=== PATIENT | male | born 2000 | race Two or more races ===

== ENCOUNTER 2023-07-06 16:41 | Emergency (ER) | payer OTHER ==
[~2023-07-06] VITALS: Ht 175.3 cm; Wt 72.6 kg
[~2023-07-06 16:41] MED LIST: INTESTINEX680 M1 PO; PEPCID AC20 MG PO
[2023-07-06 19:57] LABS: ALBUMIN 4.2 gm/dL (3.4-5.0); BILIRUBIN TOTAL 1.1 mg/dL (0.3-1.2); CALCIUM 8.9 mg/dL (8.5-10.1); CREATININE SERUM 0.87 mg/dL (0.70-1.30); GFR 107.81; GLOBULINA 3.5 G/DL (2.4-3.5); POTASSIUM 3.39 mEq/L (3.5-5.1); TOTAL PROTEIN 7.7 gm/dL (6.4-8.2)
[2023-07-06 21:07] LABS: MEAN CELL VOLUME 88.4 fL (80.0-100.00); MEAN CORPUSCULAR HEMOGLOBIN 31.7 pg (27.00-32.0); MEAN CORPUSCULAR HGB CONC 35.9 g/dl (32.0-36.0); PLATELET COUNT 174 K/uL (150-450); RED BLOOD COUNT 5.33 M/uL (4.00-6.00); RED CELL DISTRIBUTION WIDTH 12.6 % (11.5-14.5)
[2023-07-06 21:08] LABS: HEMATOCRIT 47.1 % (39.0-48.0)
[2023-07-06 21:11] LABS: HEMOGLOBIN 16.9 g/dL (13-16.00)
== END 2023-07-06 22:34 | disposition home or self-care (01) ==
LOC: ER → EDBD 16:42 → ER 16:42
PROVIDERS: General Practice
DX: U07.1 COVID-19 (principal); Z88.8 Allergy status to other drugs, medicaments and biological substances

== ENCOUNTER 2024-12-27 00:33 | Emergency (ER) | payer OTHER ==
[~2024-12-27] VITALS: Ht 182.9 cm; Wt 77.1 kg
[2024-12-27] MEDS ORDERED: DIPHENHYDRAMINE HCL 12.5 MG/5 ML BLIST.PACK PO STA (05:49)
[2024-12-27] MEDS ORDERED: GUAIFENESIN 200 MG/10 ML BLIST.PACK PO STA (05:49)
[2024-12-27] MEDS ORDERED: KETOROLAC TROMETHAMINE 10 MG TABLET PO STA (05:50)
[2024-12-27] MEDS ORDERED: DIPHENHYDRAMINE HCL 12.5 MG/5 ML BLIST.PACK PO ONE (05:52)
[2024-12-27] MEDS ORDERED: GUAIFENESIN 200 MG/10 ML BLIST.PACK PO ONE (05:52)
[2024-12-27] MEDS ORDERED: KETOROLAC TROMETHAMINE 10 MG TABLET PO ONE (05:52)
[2024-12-27 06:10] LABS: BASO % 0.4 % (0.1-1.2); EOS # 0.21 (0.04-0.54); EOS % 3.9 % (0.7-7.0); HEMOGLOBIN 14.3 g/dL (13.7-17.5); LYMPH # 2.26 (1.18-3.74); MEAN CORPUSCULAR HEMOGLOBIN 30.8 pg (25.6-32.2); MONO # 0.75 (0.24-0.82); NEUT # 2.14 (1.56-6.13); NEUT % 39.8 % (34.0-71.1); PLATELET COUNT 183 K/uL (163-369); RED BLOOD COUNT 4.64 M/uL (4.63-6.08); RED CELL DISTRIBUTION WIDTH 11.2 % (11.6-14.4)
[2024-12-27 06:11] LABS: MONO % 13.9 % (4.7-12.5)
[2024-12-27 07:37] LABS: INFLUENZA A AG NEGATIVE (NEGATIVE)
[2024-12-27 07:39] LABS: COVID-19 AG NEGATIVE (NEGATIVE)
[2024-12-27] MEDS ORDERED: PHENAGIL TABLE1 EACH PO (08:09)
[2024-12-27] MEDS ORDERED: ZYNCOF 20-400120 ML PO (08:09)
[2024-12-27] MEDS ORDERED: DOLOGESIC 500-1 EACH PO (08:09)
== END 2024-12-27 11:51 ==
LOC: ER 01:06
PROVIDERS: General Practice
DX: R50.9 Fever, unspecified (principal); B34.9 Viral infection, unspecified; Z88.8 Allergy status to other drugs, medicaments and biological substances; Z20.822 Contact with and (suspected) exposure to COVID-19

== ENCOUNTER 2025-05-23 17:53 | Emergency (ER) | payer OTHER ==
[~2025-05-23] VITALS: Ht 177.8 cm; Wt 79.4 kg
[~2025-05-23 17:53] MED LIST changes: +DOLOGESIC 500-1 EACH PO; +PHENAGIL TABLE1 EACH PO; +ZYNCOF 20-400120 ML PO
[2025-05-23 18:34] VITALS: BP 128/74; O2SAT 97
[2025-05-23] MEDS ORDERED: KETOROLAC TROMETHAMINE 60 MG VIAL IM ONE ×2 (19:00→19:06)
[2025-05-23] MEDS ORDERED: CEFTRIAXONE SODIUM 1,000 MG VIAL IM ONE (19:00)
[2025-05-23] MEDS ORDERED: CEFTRIAXONE SODIUM 1,000 MG VIAL ONE (19:06)
[2025-05-23 19:12] LABS: BASO % 0.3 % (0.1-1.2); EOS # 0.30 (0.04-0.54); EOS % 2.2 % (0.7-7.0); LYMPH # 2.31 (1.18-3.74); LYMPH % 16.7 % (19.3-53.1); MEAN PLATELET VOLUME 10.30 fl (9.4-12.4); MONO # 1.27 (0.24-0.82); MONO % 9.2 % (4.7-12.5); NEUT # 9.87 (1.56-6.13); NEUT % 71.3 % (34.0-71.1); RED CELL DISTRIBUTION WIDTH 11.6 % (11.6-14.4)
[2025-05-23 19:45] LABS: ALT/SGPT 28.0 U/L (12-78); AST/SGOT 11.0 U/L (15-37); BILIRUBIN TOTAL 0.56 mg/dL (0.3-1.2); BUN CREA RATIO 17.0 (7.0-25.0); CREATININE SERUM 0.96 mg/dL (0.70-1.30); GFR 95.44; GLOBULINA 3.1 G/DL (2.4-3.5); GLUCOSE FASTING 96.0 mg/dL (65-100); OSMOLALITY SERUM 284.0 MOSM/KG (275-295)
[2025-05-23 20:08] LABS: URINE APPEARANCE Cloudy; URINE BILIRRUBIN Negative (NEGATIVE); URINE BLOOD Moderate; URINE COLOR Yellow; URINE GLUCOSE Negative (NEGATIVE); URINE KETONE Negative (NEGATIVE); URINE LEUKOCYTE Moderate; URINE NITRATE Negative; URINE UROBILINOGEN 1.0 E.U./dl
[2025-05-23 20:11] LABS: URINE BACTERIA 127.1 uL (0.0-1933); URINE RBC 150.4 uL (0.0-20.8); URINE WBC 4818.5 uL (0.0-23.2)
[2025-05-23 20:12] LABS: URINE CAST 0.43 uL (0.0-1.40); URINE EPITHELIAL CELLS 0.6 uL (0.0-38.8); URINE PROTEIN 100 (NEGATIVE)
[2025-05-23] MEDS ORDERED: MONDOXYNE NL100 MG PO (21:44)
[2025-05-23] MEDS ORDERED: NORFLEX100MG PO (21:44)
[2025-05-23] MEDS ORDERED: PEPCID AC20 MG PO (21:44)
== END 2025-05-23 23:03 | disposition home or self-care (01) ==
LOC: ER 17:53
PROVIDERS: General Practice
DX: R36.1 Hematospermia (principal); A94 Unspecified arthropod-borne viral fever; N50.811 Right testicular pain; Z88.0 Allergy status to penicillin